=== PATIENT | female | born 1935 | race Caucasian/White ===

== ENCOUNTER → 2016-11-13 | Day surgery (SDC) | payer OTHER ==
[~2016-11-13] VITALS: Ht 167.6 cm; Wt 77.1 kg
--- NOTE | 2016-11-13 14:48 | Operative Report ---
Operative/Inv Procedure Report Surgery Date: 11/13/16 Name of Procedure: Of Cautery of Hemangiomavulva Pre-Operative Diagnosis: 3.0 Hemangiomas bleeding Post-Operative Diagnosis: Same Estimated Blood Loss: scant Surgeon/Fulfillment Coordinator: JENNIFER ADLER MD Anesthesia: moderate sedation Operative/Procedure Note Note: At this point Marcaine was injected underneath the larger hemangiomas with the cautery on 30 the lesions were cauterized hemostasis was apparent Silvadene cream was applied to the fold at the end of the case counts were correct ointments were correct patient was returned supine position she was awakened from anesthesia and transferred recovery room awake alert Findings: Multiple hemangiomas bilateral
== END ==
LOC: STS 11-06 07:00
DX: D18.09 Hemangioma of other sites (principal); E11.9 Type 2 diabetes mellitus without complications; E78.5 Hyperlipidemia, unspecified; E03.9 Hypothyroidism, unspecified; I48.2 Chronic atrial fibrillation; I48.91 Unspecified atrial fibrillation; E07.9 Disorder of thyroid, unspecified; I10 Essential (primary) hypertension
CPT/HCPCS: J0131